=== PATIENT | male | born 1945 | race Caucasian/White ===

== ENCOUNTER 2021-10-04 18:35 | Emergency (ER) | payer MEDICARE, SELFPAY ==
[2021-10-04 18:45] VITALS: BP 142/75; PULSE 55; RESP 16; TEMP 36.6; O2SAT 97; BMI 28.5
[2021-10-04] MEDS: predniSONE 20 MG TABLET 40 MG PO (18:58)
[2021-10-04] MEDS: diphenhydrAMINE 25 MG TABLET PO (18:58)
== END 2021-10-04 19:36 | disposition left against medical advice (07) ==
PROVIDERS: Emergency Provider Emergency Medicine
DX: S00.562A Insect bite (nonvenomous) of oral cavity, initial encounter (principal); W57.XXXA Bitten or stung by nonvenomous insect and other nonvenomous arthropods, initial encounter
CPT/HCPCS: 99283